=== PATIENT | female | born 1985 | race Caucasian/White ===

== ENCOUNTER 2021-02-08 15:39 | Emergency (ER) | payer BC ==
[~2021-02-08] VITALS: Ht 170.2 cm; Wt 58.0 kg
[2021-02-08 17:03] LABS: MICROSCOPIC INDICATED
[2021-02-08 17:20] LABS: ALANINE AMINOTRANSFERASE 29 U/L (12-78); ALBUMIN 3.9 g/dL (3.4-5.0); ANION GAP 6 mmol/L (5-15); CALCIUM 8.9 mg/dL (8.5-10.1); CHLORIDE 105 mmol/L (98-107); CREATININE 0.95 mg/dL (0.55-1.02)
[2021-02-08 17:22] LABS: MEAN CORPUSCULAR HEMOGLOBIN 30.9 pg (27.0-34.8); MEAN CORPUSCULAR HGB CONC 33.3 g/dL (32.4-35.8); MEAN PLATELET VOLUME 9.5 fL (7.4-10.4); PLATELET COUNT 253 x10^3/uL (130-400); RED BLOOD COUNT 5.12 x10^6/uL (3.82-5.3); RED CELL DISTRIBUTION WIDTH 14.1 % (9.6-15.2)
[2021-02-08 17:23] LABS: BASOPHILS % (AUTO) 1 % (0-1); EOSINOPHILS % (AUTO) 1 % (1-7); LYMPHOCYTES % (AUTO) 20 % (22-44); MONOCYTES % (AUTO) 9 % (2-9); NEUTROPHILS % (AUTO) 69 % (42-75)
[2021-02-08 17:24] LABS: ALKALINE PHOSPHATASE 45 U/L (45-117); BILIRUBIN,TOTAL 0.7 mg/dL (0.2-1.0); TOTAL PROTEIN 8.2 g/dL (6.4-8.2)
--- NOTE | 2021-02-08 18:02 | NUR ---
compass operator: Pt ambulatory to room from lobby at this time.
--- NOTE | 2021-02-08 18:25 | NUR ---
PT STATES SHE WAS DRIVING AND HAD SUDDEN ONSET OF L RIB RAIN RAD TO BACK. STATES INCREASED PAIN C INSPIRATION.
[2021-02-08 18:26] VITALS: BP 110/81
--- NOTE | 2021-02-08 18:26 | NUR ---
AT [facility]
[2021-02-08] MEDS ORDERED: KETOROLAC 60 MG/2 ML ONE (18:29)
[2021-02-08] MEDS ORDERED: KETOROLAC 30 MG/1 ML IM ONE (18:30)
--- NOTE | 2021-02-08 18:47 | NUR ---
pt given water and blanket. will ctm.
== END 2021-02-08 19:47 | disposition home or self-care (01) ==
LOC: ED 16:09
DX: M94.0 Chondrocostal junction syndrome [Tietze] (principal); R07.81 Pleurodynia
CPT/HCPCS: 36415; 71045; 80053; 81001; 83690; 84703; 85025; 87086; 96372; 99284; J1885